=== PATIENT | female | born 1995 | race Caucasian/White ===

== ENCOUNTER 2016-10-12 13:36 | Emergency (ER) | payer BC ==
[2016-10-12 14:18] LABS: HEMOGLOBIN 9.9 gm/dl (12.3-15.3)
== END 2016-10-12 16:05 | disposition home or self-care (01) ==
LOC: ER1 13:36
PROVIDERS: Physician Assistant
DX: N93.8 Other specified abnormal uterine and vaginal bleeding (principal); D64.9 Anemia, unspecified; Z79.899 Other long term (current) drug therapy
CPT/HCPCS: 36415; 81001; 84443; 84703; 85014; 85018; 99284

== ENCOUNTER 2020-08-24 13:30 | Emergency (ER) | payer OTHER ==
[2020-08-24] MEDS ORDERED: IBUPROFEN800 MG PO (16:29)
== END 2020-08-24 16:42 | disposition home or self-care (01) ==
LOC: ER1 13:30
DX: S09.90XA Unspecified injury of head, initial encounter (principal); S16.1XXA Strain of muscle, fascia and tendon at neck level, initial encounter; S30.0XXA Contusion of lower back and pelvis, initial encounter; S70.01XA Contusion of right hip, initial encounter; W01.0XXA Fall on same level from slipping, tripping and stumbling without subsequent striking against object, initial encounter; Y92.89 Other specified places as the place of occurrence of the external cause; Y99.0 Civilian activity done for income or pay
CPT/HCPCS: 70450; 72100; 72125; 73502; 99284